=== PATIENT | male | born 1975 | race Caucasian/White ===

== ENCOUNTER 2023-11-28 07:59 | Emergency (ER) | payer BC, SELFPAY ==
--- NOTE | ~2023-11-28 | XR_ITS ---
EXAMINATION: XR chest 1V portable 11/28/2023 08:46 INDICATION: Chest pain PROCEDURE: AP portable chest COMPARISON: No prior studies for comparison. FINDINGS: The lungs are clear. The cardiomediastinal silhouette is within normal limits. There are no pleural effusions. There is no pneumothorax suspected. IMPRESSION: 1: NO ACUTE CARDIOPULMONARY DISEASE. Reviewed, dictated and finalized at location B.
[2023-11-28 08:06] VITALS: BP 148/102; PULSE 88; RESP 16; TEMP 36.4; O2SAT 97
--- NOTE | 2023-11-28 08:38 | ED.GENADULT ---
HPI - General Adult General Chief complaint: Skin/Abscess/Foreign Body Stated complaint: food stuck in throat Time Seen by Provider: 11/28/23 08:12 History of Present Illness HPI narrative: 48-year-old male presenting to the emergency department for evaluation for pain with swallowing. Patient states he had a sushi roll yesterday and had a choking episode while he was swallowing. Patient states he had esophageal tightening/spasm while he was swallowing. Patient states that he was able to get the food down and did take some water and Advil afterwards. Patient denied difficulty breathing. Patient states that he has been having intermittent pain with swallowing. Patient states it is more were pressure rather than a sharp pain. Patient reports last night when he was trying to sleep he felt that his throat may have been tightening. Upon arrival emergency department patient is in no acute distress and has no difficulty breathing or swallowing. Patient is from the [facility] and is going back on Thursday. Related Data Allergies Allergy/AdvReac Type Severity Reaction Status Date / Time No Known Allergies Allergy Verified 11/28/23 08:53 Review of Systems Review of Systems: All systems reviewed & are unremarkable except as noted in HPI and below Exam Narrative: APPEARANCE: Well appearing, no pain, no distress, well-nourished. HEAD: normocephalic, atraumatic. EYES: PERRLA/EOMI, conjunctivae clear. NOSE: Normal no drainage EARS:TMS clear with good light reflex. THROAT: Pharynx clear, no exudate. NECK: Supple. No adenopathy, no masses. RESPIRATORY: Airway patent, respirations nonlabored. Clear to auscultation bilaterally, no rales, rhonchi, wheezing. CARDIOVASCULAR: Regular rate and rhythm without murmurs rubs or gallops. ABDOMINAL: Soft, nontender, nondistended, normal bowel sounds MUSCULOSKELETAL: Moves all extremities. Strength/ROM intact, No edema, No calf tenderness. NEURO: Alert. Cranial nerves II through XII intact. Good gait. Good coordination SKIN: Warm, dry. Normal Color Course Course Emergency Course: Patient was discharged to home with instructions for outpatient follow-up Vital Signs Vital signs: Vital Signs Temperature 97.6 F 11/28/23 08:06 Pulse Rate 88 11/28/23 08:06 Respiratory Rate 16 11/28/23 08:06 Blood Pressure 148/102 H 11/28/23 08:06 Pulse Oximetry 97 11/28/23 08:06 Temperature 97.6 F 11/28/23 08:06 Pulse Rate 88 11/28/23 08:06 Respiratory Rate 16 11/28/23 08:06 Blood Pressure 148/102 H 11/28/23 08:06 Pulse Oximetry 97 11/28/23 08:06 Oxygen Delivery Room Air 11/28/23 08:12 Medical Decision Making MDM Narrative Medical decision making narrative: 48-year-old male present to the emergency department for evaluation pain while swallowing. Patient is able to handle his own secretions the emergency department and patient is tolerating p.o.. Patient has no no stridor or wheezing. Lungs are clear to auscultation. Patient was provided GI cocktail for symptom control an x-ray was ordered. Patient has tolerating p.o.. No respiratory distress. Urine showed no acute finding. Suspect esophageal irritation without obstruction. Differential Diagnosis Differential Diagnosis: Food bolus, esophageal spasm, esophageal stricture, airway obstruction Vital Signs Vital Signs: Vital Signs Temperature 97.6 F 11/28/23 08:06 Pulse Rate 88 11/28/23 08:06 Respiratory Rate 16 11/28/23 08:06 Blood Pressure 148/102 H 11/28/23 08:06 Pulse Oximetry 97 11/28/23 08:06 Temperature 97.6 F 11/28/23 08:06 Pulse Rate 88 11/28/23 08:06 Respiratory Rate 16 11/28/23 08:06 Blood Pressure 148/102 H 11/28/23 08:06 Pulse Oximetry 97 11/28/23 08:06 Oxygen Delivery Room Air 11/28/23 08:12 Imaging Data Radiologist's impression: Impressions Chest X-Ray 11/28/23 08:52 IMPRESSION: 1: NO ACUTE CARDIOPULMONARY DISEASE. Dis
[2023-11-28] MEDS: BELLADONNA ALK/PHENOB ELIX 10 ML, MAG HYDROX/ALUMINUM HYD/SIMETH 30 ML, LIDOCAINE HCL 2... PO (08:49)
== END 2023-11-28 10:00 | disposition home or self-care (01) ==
PROVIDERS: Emergency Provider Emergency Medicine
DX: K22.4 Dyskinesia of esophagus (principal)
CPT/HCPCS: 71045; 99283; A9270